=== PATIENT | male | born 1945 | race American Indian/Alaskan Native ===

== ENCOUNTER 2017-12-24 11:48 | Emergency (ER) | payer OTHER, MEDICARE ==
[2017-12-24] MEDS ORDERED: TYLENOL #3 PO ONE (14:34)
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
[2017-12-24 15:57] VITALS: BP 130/80
== END 2017-12-24 15:57 | disposition home or self-care (01) ==
LOC: ED 11:48
DX: S13.4XXA Sprain of ligaments of cervical spine, initial encounter (principal); S39.012A Strain of muscle, fascia and tendon of lower back, initial encounter; V79.49XA Driver of bus injured in collision with other motor vehicles in traffic accident, initial encounter; Y93.89 Activity, other specified; Y99.9 Unspecified external cause status; Y92.410 Unspecified street and highway as the place of occurrence of the external cause
CPT/HCPCS: 72040; 72100